=== PATIENT | female | born 1960 | race Caucasian/White ===

== ENCOUNTER 2019-06-15 15:58 | Outpatient (CLI) | payer OTHER | END 2019-06-15 19:53 | disposition home or self-care (01) | LOC: MCA 15:58 | PROVIDERS: ATTEND Family Medicine | DX: Z01.818 Encounter for other preprocedural examination (principal); I51.7 Cardiomegaly; I44.7 Left bundle-branch block, unspecified; N81.5 Vaginal enterocele | CPT/HCPCS: 93005 ==